=== PATIENT | female | born 1960 ===

== ENCOUNTER 2018-01-28 15:08 | Outpatient (CLI) | payer OTHER | END 2018-01-28 15:12 | disposition home or self-care (01) | LOC: RAD 15:08 | DX: M79.671 Pain in right foot (principal) ==

== ENCOUNTER → 2018-01-28 | Outpatient (CLI) | payer OTHER ==
[~2018-01-28] MED LIST: ASA81 MG; LISINOPRIL5 MG; METFORMIN HCL500 MG; SIMVASTATIN40 MG; SYNTHROID75 MCG; ZOLOFT50 MG
== END | disposition home or self-care (01) ==
LOC: LAB 16:04
DX: E11.9 Type 2 diabetes mellitus without complications (principal); E03.8 Other specified hypothyroidism; E78.2 Mixed hyperlipidemia; L03.116 Cellulitis of left lower limb

== ENCOUNTER 2018-02-04 11:42 | Outpatient (CLI) | payer OTHER | END 2018-02-04 13:00 | disposition home or self-care (01) | LOC: NUCLEAR 11:42 | DX: I87.2 Venous insufficiency (chronic) (peripheral) (principal) ==

== ENCOUNTER 2018-04-18 12:25 | Emergency (ER) | payer OTHER ==
[~2018-04-18] VITALS: Ht 162.6 cm; Wt 113.4 kg
[2018-04-19] MEDS ORDERED: TESSALON PERLE100 M1 PO (13:14)
[2018-04-19] MEDS ORDERED: ZYNCOF 20-400120 ML PO (13:14)
[2018-04-19] MEDS ORDERED: ZITHROMAX500 MG PO (13:14)
[2018-04-19] MEDS ORDERED: TUSSIONEX PENN115 ML PO (13:14)
== END 2018-04-19 14:21 | disposition home or self-care (01) ==
LOC: ER 12:25
DX: J45.998 Other asthma (principal); R05 Cough; R07.89 Other chest pain; E66.2 Morbid (severe) obesity with alveolar hypoventilation; J11.1 Influenza due to unidentified influenza virus with other respiratory manifestations